=== PATIENT | female | born 1995 | race Caucasian/White ===

== ENCOUNTER 2019-08-09 10:25 | Emergency (ER) | payer BC ==
--- OUTSIDE RECORDS SUMMARY | 2019-08-09 10:31 | XMS REPORT | Continuity of Care Document ---
:1995 External Reference #:[id number] Author Name Brooke Jones MD Address [address] [place] [address] Problems Description No Information Available Social History Type Date Description Comments Sex Unknown Tobacco Use Start: Unknown Never Smoked Cigarettes Smoking Status Reviewed: 07/17/19 Never Smoked Cigarettes ETOH Use Rarely consumes alcohol Recreational Drug Use Denies Drug Use Exercise Type/Frequency Exercises regularly Seat Belt/Car Seat Always uses seat belt Allergies, Adverse Reactions, Alerts Description No Known Drug Allergies Medications Active Medications SIG Qnty Indications Ordering Provider Date Ethynodiol 1 by mouth every Unknown Diacetate/Ethinyl day Estradiol 1-35mg-mcg Tablets Balance By Rita (Dietary, Hormone, Unknown and Fertility supplement) 4 capsules PO Q Am Medications Administered in Office Medication SIG Qnty Indications Ordering Provider Date PT SCRN Tbco Id as Non User Brooke Jones MD 07/17/2019 Injection Immunizations Description No Information Available Vital Signs Date Vital Result Comment 07/17/2019 10:02am BP Systolic 118 mmHg BP Diastolic 76 mmHg Height 66 inches 5'6" Weight 100.00 lb BMI (Body Mass Index) 16.1 kg/m2 Last Menstrual Period [id number] Parity 0 Results Description No Information Available Procedures Description No Information Available Medical Devices Description No Information Available Encounters Description No Information Available Assessments Date Code Description Provider 07/17/2019 Z01.419 Encounter for gynecological examination Brooke Jones MD (general) (routine) without abnormal findings 07/17/2019 Z80.3 Family history of malignant neoplasm of breast Brooke Jones MD Plan of Treatment 07/17/2019 - Brooke Jones MDZ01.419 Encounter for gynecological examination (general) (routine) without abnormal findingsComments:Maintain routine exercise and healthy diet. Try to get adequate sleep at night to improve your overall health (most people need >8 hours!)Perform periodic breast exams at various times of the month to become familiar with your breast tissue so you don't have to worry about your normal lumps and bunps and are more likely to notice something abnormal. Return for annual exam in 1 year or as needed ifconcerns arise.Z80.3 Family history of malignant neoplasm of breastComments:Mom said she is not at increased risk so we're assuming she was BRCA negative. Discussed increased screening regardless but not starting until 36yrs Functional Status Description No Information Available Mental Status Description No Information Available Referrals Description No Information Available
[2019-08-09 10:45] VITALS: BP 123/70
--- NOTE | 2019-08-09 10:56 | UC ---
Respiratory Complaint HPI - HPI Summary HPI Summary: 24 yo female presents with sore throat. She tells me that about 1 week ago she developed a sore throat. She has been taking dayquill and feels much better - sore throat is nearly gone. Yesterday she developed some nausea with a decreased appetite and vomited once. She was able to tolerate po, but didn't feel like eating. Today she still feels slightly nauseous, but has not vomited. She denies fever, chills, sinus symptoms, cough, SOB, chest pain, abdominal pain , diarrhea, dysuria, vaginal discharge/bleeding. She states not chance of as she is a virgin. - History of Current Complaint Chief Complaint: UCGeneralIllness Stated Complaint: RESP COMPLAINT Time Seen by Provider: 08/09/19 10:56 Hx Obtained From: Patient Hx Last Menstrual Period: 08/01/19 Onset/Duration: Gradual Onset Severity Initially: Mild Severity Currently: Mild Pain Intensity: 3 Pain Scale Used: 0-10 Numeric - Allergies/Home Medications Allergies/Adverse Reactions: Allergies Allergy/AdvReac Type Severity Reaction Status Date / Time No Known Allergies Allergy Verified 08/09/19 10:45 Home Medications: Home Medications Ethynodiol D-Ethinyl Estradiol [Ethynodiol-Eth Estra 1Mg-35Mcg] 1 tab PO DAILY 08/09/19 [History Confirmed 08/09/19] PMH/Surg Hx/FS Hx/Imm Hx - Additional Past Medical History Additional PMH: None - Surgical History Surgical History: Yes Surgery Procedure, Year, and Place: [place] teeth 2009 - Family History Known Family History: Positive: Non-Contributory - Social History Occupation: Employed Full-time Lives: With Family Alcohol Use: None Substance Use Type: None Smoking Status (MU): Never Smoked Tobacco Review of Systems All Other Systems Reviewed And Are Negative: No Constitutional: Positive: Negative Skin: Positive: Negative Eyes: Positive: Negative ENT: Positive: Sore Throat Respiratory: Positive: Negative Cardiovascular: Positive: Negative Gastrointestinal: Positive: Vomiting, Nausea Genitourinary: Positive: Negative Neurological: Positive: Negative Psychological: Positive: Negative Physical Exam - Summary Physical Exam Summary: GENERAL: NAD. WDWN. No pain distress. SKIN: No rashes, sores, lesions, or open wounds. HEENT: Head: AT/NC Eyes: EOM intact. Conjunctiva clear without inflammation or discharge. Ears: Hearing grossly normal. TMs intact, no bulging, erythema, or edema. Nose: Nasal mucosa pink and moist. NTTP maxillary and frontal sinus. Throat: Posterior oropharynx without exudates, erythema, or tonsillar enlargement. Uvula midline. NECK: Supple. Nontender. No lymphadenopathy. CHEST: CTAB. No r/r/w. No accessory muscle use. Breathing comfortably and in no distress. CV: RRR. Without m/r/g. Pulses intact. Cap refill <2seconds ABDOMEN: Soft. NTTP. No distention or guarding. No CVA tenderness. Bowel sounds present NEURO: Alert. PSYCH: Age appropriate behavior. Triage Information Reviewed: Yes Vital Signs: Initial Vital Signs Temp 98.6 F 08/09/19 10:42 Pulse 78 08/09/19 10:42 Resp 16 08/09/19 10:42 BP 123/70 08/09/19 10:42 Pulse Ox 99 08/09/19 10:42 Laboratory Tests 08/09/19 11:03 Group A Strep Rapid Negative Vital Signs Reviewed: Yes Respiratory Course/Dx - Course Course Of Treatment: POC strep negative. Suspect viral illness. She still feels slightly nauseous, but is tolerating po without vomiting. Will rx for zofran and have her be rechecked if symptoms do not improve or go to the ED if symptoms worsen. Pt voiced understanding and agrees with the plan. - Differential Dx/Diagnosis Provider Diagnosis: Sore throat, Nausea Discharge ED - Sign-Out/Discharge Documenting (check all that apply): Patient Departure All imaging exams completed and their final reports reviewed: No Studies - Discharge Plan Condition: Stable Disposition: HOME Prescriptions: Ondansetron ODT TAB* [Zofran 4 MG Odt TAB*] 4 mg PO Q8H PRN #12 tab.odt PRN Reason: Nausea Patient Education Materials: Viral Syndrome (ED) Referrals: No Primary Care Phys,NOPCP [Primary Care Provider] - Additional Instructions: If you develop a fever, shortness of breath, chest pain, new or worsening symptoms - please call your PCP or go to the ED immediately. Your strep test was negative. Your symptoms today seem to be related to a virus and are improving well. May take the zofran every 8 hours if needed for your nausea. Advance your diet slowly starting with bland foods such as applesauce, rice, toast, bananas. - Billing Disposition and Condition Condition: STABLE Disposition: Home
== END 2019-08-09 11:19 | disposition home or self-care (01) ==
LOC: UCEAST 10:25
DX: J02.9 Acute pharyngitis, unspecified (principal); R11.0 Nausea
CPT/HCPCS: 87651; 99212; G0463

== ENCOUNTER 2019-12-25 10:40 | Emergency (ER) | payer BC ==
[2019-12-25 10:57] VITALS: BP 94/71
--- NOTE | 2019-12-25 11:49 | UC ---
Throat Pain/Nasal Murali HPI - HPI Summary HPI Summary: 24-year-old female who has had a sore throat for the past 2 days. She also had vomiting and diarrhea. She has vomited 2 times in the past 24 hours the last time being at 2:30 this morning. She is able to now retain liquids. - History of Current Complaint Chief Complaint: UCGeneralIllness Stated Complaint: DIZZY, SORE THROAT,COUGH,VOMITTING Time Seen by Provider: 12/25/19 11:28 Hx Obtained From: Patient Hx Last Menstrual Period: 12/14/19 ?: No Onset/Duration: Gradual Onset, Lasting Days Severity: Moderate Pain Intensity: 5 Cough: Nonproductive Associated Signs & Symptoms: Positive: Vomiting - Allergies/Home Medications Allergies/Adverse Reactions: Allergies Allergy/AdvReac Type Severity Reaction Status Date / Time No Known Allergies Allergy Verified 12/25/19 10:57 PMH/Surg Hx/FS Hx/Imm Hx Previously Healthy: Yes - Surgical History Surgical History: Yes Surgery Procedure, Year, and Place: [place] teeth 2009 - Family History Known Family History: Positive: Non-Contributory - Social History Occupation: Employed Full-time Alcohol Use: None Substance Use Type: None Smoking Status (MU): Never Smoked Tobacco Review of Systems All Other Systems Reviewed And Are Negative: Yes Constitutional: Positive: Fever, Chills ENT: Positive: Sore Throat Respiratory: Positive: Cough - Dry nonproductive cough. Negative: Shortness Of Breath Gastrointestinal: Positive: Vomiting, Diarrhea, Nausea - Nausea has alleviated, last time she vomited was at 2:30 this morning. She's vomited 2 times in the past 24 hours. She's had diarrhea 2 times in the past 24 hours. The patient states she is feeling better today. Musculoskeletal: Positive: Myalgia Is Patient Immunocompromised?: No Physical Exam Triage Information Reviewed: Yes Appearance: Well-Appearing, No Pain Distress, Well-Nourished Vital Signs: Initial Vital Signs Temp 97.9 F 12/25/19 10:55 Pulse 110 12/25/19 10:55 Resp 18 12/25/19 10:55 BP 94/71 12/25/19 10:55 Pulse Ox 100 12/25/19 10:55 Vital Signs Reviewed: Yes Eyes: Positive: Conjunctiva Clear ENT: Positive: Pharyngeal erythema, TMs normal, Uvula midline Neck: Positive: Supple, Nontender, No Lymphadenopathy Respiratory: Positive: Lungs clear, No respiratory distress, No accessory muscle use Cardiovascular: Positive: No Murmur, Pulses Normal, Brisk Capillary Refill, Tachycardia Abdomen Description: Positive: Nontender, No Organomegaly, Soft. Negative: CVA Tenderness (R), CVA Tenderness (L), Distended, Guarding, Hepatomegaly, McBurney' s Point Tenderness, Splenomegaly Bowel Sounds: Positive: Present Musculoskeletal Exam: Normal Neurological Exam: Normal Psychological Exam: Normal Skin Exam: Normal Throat Pain/Nasal Course/Dx - Course Course Of Treatment: Rapid strep test: Negative I think the patient has seen viral syndrome that is "going around" throughout the community. She is feeling better today and has been rehydrating herself. No work until Monday and she can concentrate on getting back to her normal diet. She is to go to the emergency room if she has any worsening symptoms, feels like she is going to pass out or continued vomiting and diarrhea. - Differential Dx/Diagnosis Provider Diagnosis: Viral syndrome Discharge ED - Sign-Out/Discharge Documenting (check all that apply): Patient Departure All imaging exams completed and their final reports reviewed: No Studies - Discharge Plan Condition: Good Disposition: HOME Patient Education Materials: Acute Nausea and Vomiting (ED) Forms: *Work Release Referrals: [facility] [Outside] No Primary Care Phys,NOPCP [Primary Care Provider] - Additional Instructions: Clear liquids today, soup and crackers later today when you have no further vomiting then gradually increase to your regular diet. Avoid spicy or fatty foods today. Definite follow up with your primary care provider if no improvement in 1 day. Go to the ER if you feel like you are going to pass out or if you feel lightheaded or dizzy. - Billing Disposition and Condition Condition: GOOD Disposition: Home
== END 2019-12-25 11:51 | disposition home or self-care (01) ==
LOC: UCEAST 10:40
DX: B34.9 Viral infection, unspecified (principal); J02.9 Acute pharyngitis, unspecified; R19.7 Diarrhea, unspecified; R11.2 Nausea with vomiting, unspecified
CPT/HCPCS: 87651; 99211; G0463